=== PATIENT | female | born 1955 | race African-American/Black ===

== ENCOUNTER 2018-09-15 06:20 | Emergency (ER) | payer SELFPAY ==
[~2018-09-15] VITALS: Ht 160 cm; Wt 70.5 kg
[2018-09-15] MEDS ORDERED: IBUPROFEN 600MG TABLET PO ONE (08:45)
[2018-09-15 09:11] VITALS: BP 130/71
== END 2018-09-15 09:12 | disposition home or self-care (01) ==
LOC: ER 06:20
DX: M25.552 Pain in left hip (principal); I10 Essential (primary) hypertension; F17.210 Nicotine dependence, cigarettes, uncomplicated; F12.10 Cannabis abuse, uncomplicated; Z98.890 Other specified postprocedural states
CPT/HCPCS: 73502; 99283